=== PATIENT | female | born 1945 | race Two or more races ===

== ENCOUNTER 2020-02-18 11:44 | Outpatient (CLI) | payer OTHER | END 2020-02-18 13:00 | disposition home or self-care (01) | LOC: SONOGRAMA 11:44 | PROVIDERS: ATTEND Pathology Anatomic Pathology & Clinical Pathology | DX: E04.1 Nontoxic single thyroid nodule (principal); D34 Benign neoplasm of thyroid gland; E04.8 Other specified nontoxic goiter ==